=== PATIENT | female | born 1985 | race Caucasian/White ===

== ENCOUNTER 2017-09-11 05:00 | Day surgery (SDC) | payer MEDICAID ==
[2017-09-10 12:11] LABS: BASOPHILS 0.3 % (0-2); EOSINOPHILS 3.1 % (0-7); HEMATOCRIT 41.5 % (36.0-48.0); HEMOGLOBIN 13.1 g/dL (12-16); IMMATURE GRANULOCYTES 0.4 % (0-5); LYMPHOCYTES 30.5 % (15-50); MCH 25.7 pg (26.0-34.0); MCHC 31.6 g/dL (31.0-37.0); MCV 81.5 fL (80.0-100.0); MEAN PLATELET VOLUME 10.5 fL (7.4-10.4); MONOCYTES 7.7 % (2-11); PLATELET COUNT 174 10x3/uL (130-400); RBC 5.09 10x6/uL (4.00-5.40); RDW 15.7 % (11.5-14.5); WBC 10.3 10x3/uL (4.8-10.8)
[2017-09-10 13:45] LABS: CALC OSMOLALITY 282 mosm/kg (275-300); CALCIUM 8.8 mg/dL (8.5-10.1); CARBON DIOXIDE 30.5 mmol/L (21.0-32.0); CHLORIDE - SERUM 106 mmol/L (98-107); CREATININE - SERUM 0.7 mg/dL (0.6-1.3); GLUCOSE 92 mg/dL (74-106); POTASSIUM - SERUM 4.4 mmol/L (3.5-5.1); SODIUM 142 mmol/L (136-145); UREA NITROGEN 13 mg/dL (7-18); eGFR NON AFRICAN AMERICAN > 90 mL/min (90-120)
[~2017-09-11] VITALS: Ht 162.6 cm; Wt 128.4 kg
[2017-09-11] VITALS (8 sets, daily range): BP systolic 100–139; BP diastolic 55–89; Ht 162.6 cm; Wt 128.4 kg
--- NOTE | ~2017-09-11 | OP ---
PATIENT NAME: OSCAR CONN MEDICAL RECORD: [id number] :86 LOCATION:D.[facility] ADMISSION DATE: SURGEON: SALTY LUI MD DATE OF OPERATION: 09/11/2017 PREOPERATIVE DIAGNOSIS: Dysmenorrhea. POSTOPERATIVE DIAGNOSES: 1. Dysmenorrhea (suspect adenomyosis). 2. Left ovarian cyst. 3. Absent Filshie clip (right). PROCEDURES PERFORMED: 1. Diagnostic laparoscopy. 2. Laparoscopic subtotal hysterectomy with bilateral salpingectomy. 3. Left cystotomy. SURGEON: Salty Lui MD ANTISQUEAK APPLIER: Darryl Garcia HOME THEATRE TECHNICIAN: Lucas Malave ANESTHESIOLOGIST: Dr. Carlson. FINDINGS: Uterus is slightly enlarged and boggy. Both tubes were interrupted with left Filshie clip still attached to the tube. The pelvis and abdomen was visualized without evidence of the right Filshie clip. The tubes of the right side are interrupted. What was visualized of the abdominal anatomy is grossly unremarkable. Right ovary is unremarkable and left ovary has approximately 2.5 cm simple cyst. SPECIMENS REMOVED: Uterus and tubes. SPECIMEN DISPOSITION: Pathology. ESTIMATED BLOOD LOSS: Less than 75 cc. FLUIDS: 1500 cc of lactated Ringer's. URINE OUTPUT: 100 mL of clear urine. COMPLICATIONS: None. DRAINS: Jane to gravity discontinued in PACU. INDICATION: The patient is a 32-year-old female with a history of dysmenorrhea. The patient has attempted conservative management without results. The patient understands the risks and limitations of this procedure. DESCRIPTION OF PROCEDURE: After informed consent was assured, the patient was taken to the operating room, anesthetic was obtained. The patient was now prepped and draped in the usual sterile fashion. Incision was made in the umbilicus to accommodate a 5-mm trocar, which was inserted and pneumoperitoneum developed. The patient was now placed in Trendelenburg position and accessory OPERATIVE REPORT [id number] SENIAOSCAR ports were placed in the right and left lower quadrants. The right lower quadrant port is a 10-12 port. The left lower quadrant port is a 5 mm port. A grasper was now inserted from the right side and elevated to the left tube. Using a coagulation cutter, the left tube from its attachments to the adnexa through serial compression, coagulation and separation. The uterine ovarian ligament was compressed, coagulated, and . Round ligament was and then the broad leaf was opened and the dissection developed to the midline forming half of the bladder flap. The posterior leaf was dissected free and the vessels of the left side skeletonized, compressed, coagulated, and at the level of the internal os. This was repeated on the contralateral side. The right tube was elevated and in similar fashion, the tissues attaching the tube to the adnexa were compressed, coagulated, and . The right uterine ovarian ligament was compressed, coagulated, and . The round ligament was opened and the broad ligament was dissected inferiorly until full development of the bladder flap. The posterior leaf was opened and the vessels of the right side, compressed, coagulated, and at the level of the internal os. Using the Harmonic scalpel, the uterus was dissected free from the attachments to the cervix starting on the right and concluding on the right. The endocervical canal was cauterized. Plasma Sword now replaces the 10-12 trocar. The tubes were removed through the port in their entirety without morcellation. The uterus was now morcellated in several segments. The pelvis was irrigated and irrigant removed. The cul-de-sac was inspected and stray portions of the uterus were removed. The left ovary was inspected and 2.5 cm cyst was identified. Using the Harmonic scalpel, this cyst was opened and clear straw-colored fluid was removed. The pelvis again was irrigated and the irrigant removed. Pneumoperitoneum was released and the accessory trocars were removed. After release of the pneumoperitoneum, the primary trocar was removed. Sponge, lap, and needle counts correct times 2. All sites were closed with a subcuticular stitch and sterile dressing applied. TRANSINT:[id number] Voice Confirmation ID: [id number] DOCUMENT ID: [id number] SALTY LUI MD at 0731 CC: [id number] DICTATION DATE: 09/11/17909 DRILL RIG OPERATOR HELPER: 09/11/17 1332 [facility] 09/11/17 [facility] [address] [place] [address]
[~2017-09-11 05:00] MED LIST: AUGMENTIN 875-11 TAB PO; BUSPAR10 MG PO; FLAGYL500 MG PO; MOTRIN800 MG PO; PERCOCET 5/3251 TA1 PO; PRENATAL COMPLE1 TAB PO; SYNTHROID150 MCG PO
[2017-09-11 06:25] LABS: HCG URINE NEGATIVE (NEGATIVE)
== END 2017-09-11 14:20 | disposition home or self-care (01) ==
LOC: D.OPS 05:00 → D.PAN 07:30 → D.OPS 07:30 → D.LD 09:48 → D.OPS 14:20
PROVIDERS: Obstetrics & Gynecology
DX: N94.6 Dysmenorrhea, unspecified (principal); N83.202 Unspecified ovarian cyst, left side; Z72.0 Tobacco use

== ENCOUNTER → 2018-04-17 14:18 | Outpatient (CLI) | payer MEDICAID ==
[2017-09-11 06:13] VITALS: BMI 48.7
== END | disposition home or self-care (01) ==
LOC: D.RAD 14:18
DX: R10.9 Unspecified abdominal pain (principal)

== ENCOUNTER 2018-06-01 13:48 | Emergency (ER) | payer MEDICAID ==
[~2018-06-01] VITALS: Ht 162.6 cm; Wt 154.5 kg
[2018-06-01 14:08] VITALS: Ht 162.6 cm; Wt 154.5 kg
[2018-06-01] MEDS ORDERED: AMOXICILLIN875 MG PO (15:53)
[2018-06-01] MEDS ORDERED: MECLIZINE HCL25 MG PO ×2 (15:53→15:58)
[2018-06-01 16:22] VITALS: BP 132/88
== END 2018-06-01 16:22 | disposition home or self-care (01) ==
LOC: D.ER 13:48
DX: H65.492 Other chronic nonsuppurative otitis media, left ear (principal); R42 Dizziness and giddiness

== ENCOUNTER 2018-06-03 18:22 | Emergency (ER) | payer MEDICAID ==
[~2018-06-03] VITALS: Ht 162.6 cm; Wt 154.5 kg
[~2018-06-03 18:22] MED LIST changes: +AMOXICILLIN875 MG PO; +MECLIZINE HCL25 MG PO
[2018-06-03 18:35] VITALS: Ht 162.6 cm; Wt 154.5 kg
[2018-06-03] MEDS ORDERED: HYDROCODON-ACE1 EAC7 (18:41)
[2018-06-03 19:19] LABS: ALBUMIN 3.2 g/dL (3.4-5.0); ALKALINE PHOSPHATASE 86 U/L (46-116); ALT (SGPT) 27 U/L (10-68); AMYLASE - SERUM 31 U/L (25-115); CALC OSMOLALITY 281 mosm/kg (275-300); CALCIUM 8.9 mg/dL (8.5-10.1); CARBON DIOXIDE 28.9 mmol/L (21.0-32.0); CHLORIDE - SERUM 105 mmol/L (98-107); CREATININE - SERUM 0.8 mg/dL (0.6-1.3); GLUCOSE 91 mg/dL (74-106); LIPASE 101 U/L (73-393); POTASSIUM - SERUM 3.9 mmol/L (3.5-5.1); PROTEIN - SERUM 7.7 g/dL (6.4-8.2); SODIUM 141 mmol/L (136-145); UREA NITROGEN 14 mg/dL (7-18); eGFR NON AFRICAN AMERICAN 89 mL/min (90-120)
[2018-06-03 19:25] LABS: BASOPHILS 0.3 % (0-2); EOSINOPHILS 2.5 % (0-7); HEMATOCRIT 42.1 % (36.0-48.0); HEMOGLOBIN 13.5 g/dL (12-16); IMMATURE GRANULOCYTES 0.3 % (0-5); MCH 25.8 pg (26.0-34.0); MCHC 32.1 g/dL (31.0-37.0); MCV 80.5 fL (80.0-100.0); MEAN PLATELET VOLUME 11.2 fL (7.4-10.4); NEUTROPHILS 60.9 % (40-80); PLATELET COUNT 208 10x3/uL (130-400); RBC 5.23 10x6/uL (4.00-5.40); RDW 15.8 % (11.5-14.5); WBC 13.5 10x3/uL (4.8-10.8)
[2018-06-03 19:35] LABS: APPEARANCE CLEAR (CLEAR); COLOR YELLOW (YELLOW)
[2018-06-03 19:36] LABS: BILIRUBIN NEGATIVE (NEGATIVE); GLUCOSE NEGATIVE (NEGATIVE); KETONE NEGATIVE (NEGATIVE); NITRITE POSITIVE (NEGATIVE); PROTEIN NEGATIVE (NEGATIVE); SPECIFIC GRAVITY 1.025 (1.005-1.020); UROBILINOGEN NORMAL (NORMAL)
[2018-06-03 19:37] LABS: BACTERIA MANY /hpf (NONE SEEN); EPITHELIAL CELLS 0-5 /hpf (0-5); HCG URINE NEGATIVE (NEGATIVE); MUCUS <1+ /lpf (NONE SEEN); RED CELLS - URINE 0-5 /hpf (0-5); YEAST >1+ /hpf (NONE SEEN)
[2018-06-03] MEDS ORDERED: MACROBID100 MG PO (21:01)
[2018-06-03 21:26] VITALS: BP 135/78
== END 2018-06-03 22:14 | disposition home or self-care (01) ==
LOC: D.ER 18:22
PROVIDERS: Family Medicine
DX: N39.0 Urinary tract infection, site not specified (principal); R10.12 Left upper quadrant pain

== ENCOUNTER 2018-07-10 07:55 | Day surgery (SDC) | payer MEDICAID ==
[~2018-07-10] VITALS: Ht 162.6 cm; Wt 157.8 kg
[~2018-07-10 07:55] MED LIST changes: +HYDROCODON-ACE1 EAC2 PO; +HYDROCODON-ACE1 EAC7; +MACROBID100 MG PO
[2018-07-10 08:20] LABS: BASOPHILS 0.3 % (0-2); EOSINOPHILS 3.4 % (0-7); HEMATOCRIT 40.5 % (36.0-48.0); HEMOGLOBIN 13.1 g/dL (12-16); IMMATURE GRANULOCYTES 0.4 % (0-5); LYMPHOCYTES 25.2 % (15-50); MCH 25.7 pg (26.0-34.0); MCHC 32.3 g/dL (31.0-37.0); MCV 79.4 fL (80.0-100.0); MONOCYTES 8.4 % (2-11); NEUTROPHILS 62.3 % (40-80); PLATELET COUNT 173 10x3/uL (130-400); RDW 16.2 % (11.5-14.5); WBC 12.9 10x3/uL (4.8-10.8)
[2018-07-10 08:31] VITALS: BP 119/64; Ht 162.6 cm; Wt 157.8 kg
[2018-07-10 08:56] LABS: CALC OSMOLALITY 278 mosm/kg (275-300); CALCIUM 8.2 mg/dL (8.5-10.1); CARBON DIOXIDE 26.1 mmol/L (21.0-32.0); CHLORIDE - SERUM 105 mmol/L (98-107); CREATININE - SERUM 0.6 mg/dL (0.6-1.3); GLUCOSE 90 mg/dL (74-106); SODIUM 140 mmol/L (136-145); UREA NITROGEN 13 mg/dL (7-18); eGFR NON AFRICAN AMERICAN > 90 mL/min (90-120)
[2018-07-10 08:57] LABS: POTASSIUM - SERUM 4.7 mmol/L (3.5-5.1)
[2018-07-10] MEDS ORDERED: HYDROCODON-ACE1 EA10 PO (11:09)
--- NOTE | 2018-07-11 09:41 | OP ---
PATIENT NAME: OSCAR CONN MEDICAL RECORD: [id number] :87 LOCATION:D.[facility] ADMISSION DATE: SURGEON: MADHAV WEISS MD DATE OF OPERATION: 07/10/2018 PREOPERATIVE DIAGNOSES: 1. Peritoneal foreign body. 2. Morbid obesity with a BMI of 60. 3. Tobacco dependence syndrome. POSTOPERATIVE DIAGNOSES: 1. Peritoneal foreign body. 2. Morbid obesity with a BMI of 60. 3. Tobacco dependence syndrome. PROCEDURE: Excision of peritoneal foreign body laparoscopically. SURGEON: Madhav Weiss MD REPORT OF PROCEDURE: The patient's abdomen was prepped and draped in sterile fashion. A Veress needle was inserted in the left upper quadrant and the abdomen was insufflated. A 5-mm Visiport trocar was inserted in the right lateral abdomen. Once inside, we could see the Veress needle and there was no sign of any injury to bowel or surrounding structures. An 8 mm trocar was placed in the right lower quadrant and a 5 mm trocar was placed in the right upper quadrant, both under direct visualization. There were some adhesions of omentum to the anterior abdominal wall and these were taken down carefully with blunt dissection. There was no evidence of a hernia that I could visualize. I was unable to clearly visualize the abdominal foreign body, so C-arm was brought in and under fluoroscopic guidance, I was able to find the clip. This clip was present in the omentum and was easily excised from the omentum using electrocautery. The clip was completely excised and sent off for permanent specimen. We inspected the remainder of the abdomen. I saw no evidence of any injury to bowel or surrounding structures. There was no sign of any active bleeding. The small bowel and colon appeared to be free flowing and did not have any adhesions. There were no other masses or lesions that were clearly visualized in the abdominal cavity. There were no adhesions present on the left side of the abdomen at all. Any adhesions that were present were present in the right abdomen. At this point, the ports and insufflation were then removed. We infused 10 mL of 0.25% Marcaine with epinephrine into the surrounding tissues and closed the skin with subcutaneous 5-0 Monocryl. COMPLICATIONS: None. CONDITION: Stable. ANESTHESIA: General endotracheal and local. BLOOD LOSS: Minimal. TRANSINT:[id number] Voice Confirmation ID: [id number] DOCUMENT ID: [id number] OPERATIVE REPORT [id number] OSCAR CONN CHRISTIAN MD at 0941 CC: TRE ECRDA [id number] DICTATION DATE: 07/10/18 1113 SMT TECHNICIAN: 07/10/18 1319 [facility] 07/10/18 [place] [id number] [place] [id number]
== END 2018-07-10 13:10 | disposition home or self-care (01) ==
LOC: D.OPS 07:55 → D.PAN 10:00 → D.OPS 10:00
PROVIDERS: ATTEND Surgery
DX: Z18.9 Retained foreign body fragments, unspecified material (principal); E66.01 Morbid (severe) obesity due to excess calories; Z68.44 Body mass index [BMI] 60.0-69.9, adult; F17.200 Nicotine dependence, unspecified, uncomplicated; Z01.812 Encounter for preprocedural laboratory examination

== ENCOUNTER 2019-01-16 16:38 | Emergency (ER) | payer OTHER ==
[~2019-01-16] VITALS: Ht 162.6 cm; Wt 163.6 kg
[~2019-01-16 16:38] MED LIST changes: +HYDROCODON-ACE1 EA10 PO
[2019-01-16 16:52] VITALS: Ht 162.6 cm; Wt 163.6 kg
[2019-01-16] MEDS ORDERED: CYCLOBENZAPRINE10 MG PO (18:17)
[2019-01-16 19:45] VITALS: BP 136/74
== END 2019-01-16 19:45 | disposition home or self-care (01) ==
LOC: D.ER 16:38
DX: M54.2 Cervicalgia (principal); M54.9 Dorsalgia, unspecified; V49.40XA Driver injured in collision with unspecified motor vehicles in traffic accident, initial encounter; Y93.9 Activity, unspecified; Y92.9 Unspecified place or not applicable

== ENCOUNTER 2020-06-22 18:22 | Emergency (ER) | payer OTHER ==
[~2020-06-22] VITALS: Ht 162.6 cm; Wt 184.1 kg
[~2020-06-22 18:22] MED LIST changes: +CYCLOBENZAPRINE10 MG PO
[2020-06-22 18:42] VITALS: BP 152/71; Ht 162.6 cm; Wt 184.1 kg
[2020-06-22] MEDS ORDERED: ZANAFLEX4 MG PO (19:49)
== END 2020-06-22 20:29 | disposition home or self-care (01) ==
LOC: D.ER 18:22
DX: S39.012A Strain of muscle, fascia and tendon of lower back, initial encounter (principal); S16.1XXA Strain of muscle, fascia and tendon at neck level, initial encounter; S46.912A Strain of unspecified muscle, fascia and tendon at shoulder and upper arm level, left arm, initial encounter; V89.2XXA Person injured in unspecified motor-vehicle accident, traffic, initial encounter; Y93.9 Activity, unspecified; Y92.9 Unspecified place or not applicable